=== PATIENT | male | born 1975 | race Caucasian/White ===

== ENCOUNTER 2019-10-23 07:56 | Outpatient (CLI) | payer OTHER, SELFPAY ==
[2019-10-23 08:38] LABS: Basophils # 0.1 10^3/uL (0.0-0.1); Basophils % 2.1 %; Eosinophils # 0.1 10^3/uL (0.0-0.8); Eosinophils % 2.5 %; Hematocrit 40.1 % (42.0-52.0); Hemoglobin 12.4 g/dL (11.7-16.6); Lymphocytes # 1.2 10^3/uL (0.8-4.8); Mean Corpuscular HGB Conc 30.9 g/dL (30.0-36.0); Mean Corpuscular Hemoglobin 20.6 pg (28.0-34.0); Mean Corpuscular Volume 66.6 fL (80-94); Monocytes # 0.4 10^3/uL (0.2-0.9); Monocytes % 9.2 %; Neutrophils # 2.8 10^3/uL (1.8-7.7); Neutrophils % 59.6 %; Nucleated Red Blood Cells % 0 %; Platelet Count 251 10^3/cmm (130-400); Red Blood Count 6.02 10^6/uL (4.1-5.3); Red Cell Distribution Width 17.3 % (12.1-15.1); White Blood Count 4.8 10^3/uL (4.0-10.0)
[2019-10-23 08:46] LABS: Alanine Aminotransferase 21 U/L (0-41); Alkaline Phosphatase 44 IU/L (40-130); Aspartate Amino Transferase 24 U/L (0-40); Blood Urea Nitrogen 12 mg/dL (6-20); Calcium 9.4 mg/dL (8.5-10.5); Carbon Dioxide 25 mmol/L (22-29); Chloride 103 mmol/L (98-107); Globulin 2.5 g/dL (1.3-4.6); Glomerular Filtration Rate 145.7 mL/min (90-130); Glucose 97 mg/dL (65-115); Lactate Dehydrogenase 127 U/L (135-225); Osmolality Calculated 286 mOsm/kg (285-295); Sodium 140 mmol/L (136-145); Total Bilirubin 0.6 mg/dL (0.15-1.2); Total Protein 7.5 g/dL (6.6-8.7)
[2019-10-23 08:56] LABS: Testosterone Total 458.7 ng/dL (249-836)
[2019-10-23 10:29] LABS: Tumor Marker Alpha Fetoprotein 4.3 ng/mL (0-8.3)
== END 2019-10-23 07:57 | disposition home or self-care (01) ==
LOC: ONCMED 08:05
PROVIDERS: PCP Electrodiagnostic Medicine; Visit Provider Internal Medicine Hematology & Oncology
DX: D56.9 Thalassemia, unspecified (principal); Z85.47 Personal history of malignant neoplasm of testis
CPT/HCPCS: 36415; 80053; 82105; 83615; 84403; 85025

== ENCOUNTER 2019-11-20 09:35 | Outpatient (CLI) | payer OTHER, SELFPAY ==
--- NOTE | 2019-11-20 09:38 | CT_ITS ---
WS: [id number] CT ABDOMEN AND PELVIS WITH CONTRAST HISTORY: TESTICULAR CANCER TECHNIQUE: Imaging performed of the abdomen and pelvis with IV contrast. Single phase imaging of the abdomen. Coronal and sagittal reformats are submitted. All CT scans at [facility] use at least one of these dose optimization techniques: automated exposure control; mA and/or kV adjustment per patient size (includes targeted exams where dose is matched to clinical indication); or iterativ e reconstruction. IV CONTRAST: Omnipaque 300; 95 mL IV. Oral contrast: Yes. DLP: 935.49 mGy.cm COMPARISON: 04/06/2019 Lower thorax: Lung bases are clear. Heart is normal size. No hiatal hernia. Liver/biliary system: Mild diffuse hepatic steatosis and hepatomegaly. Portal vein is patent. No bile duct dilatation. Gallbladder: Mildly contracted gallbladder. Otherwise negative. Pancreas: Normal. Spleen: Spleen measures 15.3 cm in length. The spleen has slightly increased in size since the prior study. Adrenal glands: Normal. Right kidney: Normal. Left kidney: Normal. Aorta: Normal. Lymphadenopathy: None. Free fluid: None. GI tract: Normal appendix. No GI tract obstruction. Abdominal wall: Unremarkable abdominal wall. No hernia. Pelvis: Urinary bladder is not distended. No free fluid or adenopathy. Bones: Unremarkable. CT/CT abdomen pelvis w con* [id number] IMPRESSION: 1. No retroperitoneal adenopathy or metastatic disease to the lungs. 2. Hepatic steatosis and hepatomegaly. 3. Spleen has very slightly increased in size now measuring 15.3 cm in length.
[2019-11-20] MEDS: iohexol 300 mg/mL 50 mL Btl PO (10:41)
[2019-11-20 10:47] LABS: Basophils # 0.1 10^3/uL (0.0-0.1); Basophils % 1.7 %; Eosinophils # 0.1 10^3/uL (0.0-0.8); Eosinophils % 1.3 %; Hematocrit 39.1 % (42.0-52.0); Hemoglobin 11.6 g/dL (11.7-16.6); Lymphocytes # 4.1 10^3/uL (0.8-4.8); Lymphocytes % 53.1 %; Mean Corpuscular HGB Conc 29.7 g/dL (30.0-36.0); Mean Corpuscular Hemoglobin 19.5 pg (28.0-34.0); Mean Corpuscular Volume 65.7 fL (80-94); Monocytes # 0.5 10^3/uL (0.2-0.9); Monocytes % 6.9 %; Neutrophils # 2.85 10^3/uL (1.8-7.7); Neutrophils % 36.6 %; Nucleated Red Blood Cells % 0 %; Platelet Count 268 10^3/cmm (130-400); Red Blood Count 5.95 10^6/uL (4.1-5.3); Red Cell Distribution Width 15.8 % (12.1-15.1); White Blood Count 7.8 10^3/uL (4.0-10.0)
[2019-11-20 10:59] LABS: Ferritin 800 ng/mL (30-400); Iron 236 ug/dL (59-158); Percent Saturation 82.8 % (20-50); Total Iron Binding Capacity 285 mcg/dl; Unsaturated Iron Binding 49 ug/dL (112-347)
[2019-11-20] MEDS: iohexol 300 mg/mL 100 mL Btl IV (11:00)
[2019-11-20 12:11] LABS: Slide Review Slide Review Perform
== END 2019-11-20 09:36 | disposition home or self-care (01) ==
LOC: RAD 09:36
PROVIDERS: PCP Electrodiagnostic Medicine; Visit Provider Internal Medicine Hematology & Oncology
DX: C62.90 Malignant neoplasm of unspecified testis, unspecified whether descended or undescended (principal); K76.0 Fatty (change of) liver, not elsewhere classified; R16.0 Hepatomegaly, not elsewhere classified
CPT/HCPCS: 36415; 74177; 82728; 83540; 83550; 85025

== ENCOUNTER 2019-11-23 13:41 | Outpatient (CLI) | payer OTHER, SELFPAY ==
--- NOTE | 2019-11-23 14:26 | ONC FU_ITS ---
Dr. Rosales follow up note Patient: Jayson Chase Unit #: [id number]: [id number] Dicatated By: Patrice Rosales M.D.Date of Visit:Nov 23, 2019 Onc Med Follow-up/Prog Note History of Present Illness: Mr. 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 Diffuse fatty infiltration of the liver. And his lab workup done on 03/15/2019 showed testosterone 486, alpha-fetoprotein 4.3, LDH 129 CBC showed white blood count 4.4 hemoglobin 11.6 crit 39.7 platelets 228,000 MCV 67.1 and patient has history of thalassemia minor. Patient is also following with urology Dr. Watters. Follow-up CT scan of chest abdomen pelvis done on November 20, 2019 showed no retroperitoneal adenopathy or metastatic disease to the lungs, persistent hepatic steatosis and hepatomegaly. Spleen has very slightly increased in size now measuring 15.3 cm. Alpha-fetoprotein 4.3, LDH 127 Came for follow-up, denies any specific complaint, no fever chills, no nausea or vomiting, no back pain, no abdominal pain, no jaundice, no hemoptysis or hematemesis, appetite is good, weight is stable. No headaches or blurred vision or double vision. Medications: This patient reports not taking external medications. Allergies: Penicillin Review of Systems: Constitutional - Appetite is good and weight is stable. No fever, chills, hot flashes, or night sweats. Energy level is good, ENMT - No sinus congestion/drainage. No mouth sores. No sore throat or difficulty swallowing, Hematologic/Lymphatic - No abnormal bruising or bleeding, Respiratory - No shortness of breath. No cough. No pleuritic pain or hemoptysis, Cardiovascular - No angina pain. No palpitations, Gastrointestinal - No nausea or vomiting. No heartburn or acid reflux. No diarrhea or constipation. No blood in the stool or black stools, Genitourinary (M) - No dysuria or hematuria. No urinary frequency. No urgency or incontinence, Musculoskeletal - No joint or bone pain, Neurologic - No headache or dizziness. No numbness/paresthesias or other focal neurologic symptoms, Psychiatric - No anxiety or depression. No insomnia. Vital Signs: Performed on Nov 23, 2019 13:46 Height - 71.00 in Weight - 189.4 lbs (HIGH) BSA - 2.06 sq.m BMI - 26.42 Temperature - 98.4 F Pulse - 78 /min Respiration - 18 /min BP - 127/89 mm(hg) O2 Sat - 98 % Pain - 1 Performance Status: 0 - Fully active, able to carry on all predisease activities without restrictions. (ECOG) Physical Examination: ENMT - No mouth sores no thrush or jaundice, Respiratory - Lungs are clear, Cardiovascular - Regular rate and rhythm of heart, Abdomen - Soft, bowel sounds present, Extremities - No visible edema. Lab/Imaging: Test performed on Oct 23, 2019 08:20 LDH (Total) 127 U/L Sodium 140 mmol/L Testosterone, Total 458.7 ng/dL Potassium 4.0 mmol/L Chloride 103 mmol/L CO2 25 mmol/L Anion Gap 16.0 BUN 12 mg/dL Creatinine 0.6 mg/dL Cr Clearance (Est) 186.5300 mL/min eGFR 145.7 mL/min Glucose 97 mg/dL Calcium 9.4 mg/dL Protein, Total 7.5 g/dL Albumin 5.0 g/dL Globulin 2.5 g/dL Bilirubin, Total 0.6 mg/dL ALT (SGPT) 21 U/L AST (SGOT) 24 U/L Alkaline Phosphatase 44 IU/L WBC 4.8 10 3/uL RBC 6.02 10 6/uL HGB 12.4 g/dL HCT 40.1 % MCV 66.6 fL MCH 20.6 pg MCHC 30.9 g/dL RDW 17.3 % Platelet Count 251 10 3/cmm MPV 12.0 fL Neutrophils 2.8 10 3/uL Lymphocytes 1.2 10 3/uL Monocytes 0.4 10 3/uL Eosinophils 0.1 10 3/uL Basophils 0.1 10 3/uL Neutrophil % 59.6 % Lymphocyte % 26.0 % Monocyte % 9.2 % Eosinophil % 2.5 % Basophils % 2.1 % NRBC % 0 % AFP 4.3 ng/mL Impression: History of stage IB pure seminoma diagnosed in March 2018 status post right orchiectomy followed by 2 cycles of single agent carboplatin, now in remission, confirmed with follow-up tumor marker and CT scan done every [address] scan of abdomen pelvis done on 04/06/2019 showed no evidence of neoplastic process of abdomen pelvis Postoperative changes right inguinal region Diffuse fatty infiltration of the liver Lab workup done on 03/15/2019 showed alpha-fetoprotein 4.3 Testosterone 486, LDH 129 and Mild Microcytic anemia due to thalassemia minor. Plan: Discussed with patient regarding his labs white blood count 7.8 hemoglobin 11.6 crit 39.1 platelets 268,000 iron studies shows ferritin 800, iron saturation 32.8% iron to 36 TIBC 285. Testosterone 458.7 alpha-fetoprotein 4.3, LDH 127 CT scan of chest abdomen pelvis shows no evidence of recurrence, persistent steatosis of the liver and mild splenomegaly. Clinically, patient has no signs symptoms suggestive of recurrence of disease. Confirmed with a follow-up CT scan of chest abdomen pelvis and lab work-up including tumor marker within normal range. Patient has mild microcytic anemia due to thalassemia minor. Iron studies within normal limits with a mild/moderate elevated ferritin. We will continue to monitor and he will return to clinic in 6 months with CBC CMP LDH beta hCG and alpha-fetoprotein and CT scan of abdomen pelvis and chest. Signed By: Patrice Rosales M.D. <<Signature on File>>
== END 2019-11-23 13:42 | disposition home or self-care (01) ==
LOC: ONCMED 13:41
PROVIDERS: PCP Electrodiagnostic Medicine; Visit Provider Internal Medicine Hematology & Oncology
DX: Z08 Encounter for follow-up examination after completed treatment for malignant neoplasm (principal); Z85.47 Personal history of malignant neoplasm of testis; K76.0 Fatty (change of) liver, not elsewhere classified; R16.0 Hepatomegaly, not elsewhere classified; D56.3 Thalassemia minor; D50.9 Iron deficiency anemia, unspecified; Z90.79 Acquired absence of other genital organ(s); Z92.21 Personal history of antineoplastic chemotherapy
CPT/HCPCS: G0463